=== PATIENT | female | born 1960 | race Caucasian/White ===

== ENCOUNTER → 2016-10-01 | Outpatient (CLI) | payer OTHER ==
[~2016-10-01] MED LIST: CALC500C70 PO; MULT-506 PO; SIMV20TA2 PO
[2016-10-01 12:50] LABS: GLUCOSE,FASTING 90 mg/dl (70-99)
[2016-10-01 12:57] LABS: CHOLESTEROL 194 mg/dl (0-200); CHOLESTEROL/HDL RATIO 2.9; HDL CHOLESTEROL 67 mg/dl; TRIGLYCERIDES 83 mg/dl (0-150); VERY LOW DENSITY LIPOPROT CALC 17 mg/dl
== END | disposition home or self-care (01) ==
LOC: C.LABSPEC 12:29
PROVIDERS: ATTEND Internal Medicine
DX: I10 Essential (primary) hypertension (principal); E78.5 Hyperlipidemia, unspecified; R73.9 Hyperglycemia, unspecified

== ENCOUNTER → 2017-03-05 | Outpatient (CLI) | payer OTHER ==
--- NOTE | 2017-03-06 13:48 | MAMMOGRAPHY REPORT ---
BILATERAL DIGITAL SCREENING MAMMOGRAM TOMOSYNTHESIS WITH CAD: 03/05/2017 CLINICAL HISTORY: Routine screening. Patient has no complaints. TECHNIQUE: Breast tomosynthesis in addition to standard 2D mammography was performed. Current study was also evaluated with a Computer Aided Detection (CAD) system. COMPARISON: Comparison is made to exams dated: 01/17/2016 mammogram, 12/01/2014 mammogram, 11/30/2013 [place] mogram, 11/27/2012 mammogram, 11/26/2011 mammogram, and 11/26/2010 mammogram - [facility] ter. BREAST COMPOSITION: The tissue of both breasts is heterogeneously dense, which may obscure small mas ses. FINDINGS: There is a stable focal asymmetry with associated calcification in the 12:00 right breast, and a circumscribed mass in the 3:00 anterior left breast that has decreased in size comparing to neto or mammograms, confirming benignity. There is a stable metallic biopsy marker in the left upper oute r quadrant. No new suspicious mass, architectural distortion or cluster of microcalcifications is se en. IMPRESSION: ACR BI-RADS CATEGORY 1: NEGATIVE There is no mammographic evidence of malignancy. A 1 year screening mammogram is recommended. The pa tient will receive written notification of the results. Approximately 10% of breast cancers are not detected with mammography. A negative mammographic report should not delay biopsy if a clinically suggestive mass is present. Nisha Lozada M.D. ay/:03/05/2017 15:39:39 [employer]: Qian CAMPOS(R)(M), [facility] letter sent: Normal 1/2 BI-RADS Code: ACR BI-RADS Category 1: Negative
== END | disposition home or self-care (01) ==
LOC: C.MAMM 13:47
PROVIDERS: ATTEND Obstetrics & Gynecology
DX: Z12.31 Encounter for screening mammogram for malignant neoplasm of breast (principal)

== ENCOUNTER → 2017-03-31 | Outpatient (CLI) | payer OTHER ==
[2017-03-31 13:51] LABS: BLOOD UREA NITROGEN 12 mg/dl (7-18); BUN/CREATININE RATIO 18.4 (10-20); CALCIUM 9.5 mg/dl (8.5-10.1); CARBON DIOXIDE 28 mmol/L (21-32); CHLORIDE 106 mmol/L (98-107); CHOLESTEROL 188 mg/dl (0-200); CREATININE 0.64 mg/dl (0.60-1.20); GLUCOSE 96 mg/dl (70-99); POTASSIUM 4.2 mmol/L (3.5-5.1); SODIUM 140 mmol/L (136-145)
[2017-03-31 13:57] LABS: CHOLESTEROL/HDL RATIO 3.1; HDL CHOLESTEROL 61 mg/dl; TRIGLYCERIDES 68 mg/dl (0-150); VERY LOW DENSITY LIPOPROT CALC 14 mg/dl
[2017-03-31 13:59] LABS: ESTIMATED AVERAGE GLUCOSE 114 mg/dl; HA1C FLAG Normal (Normal)
== END | disposition home or self-care (01) ==
LOC: C.LABSPEC 12:24
PROVIDERS: ATTEND Internal Medicine
DX: Z00.00 Encounter for general adult medical examination without abnormal findings (principal); E78.5 Hyperlipidemia, unspecified; R73.9 Hyperglycemia, unspecified

== ENCOUNTER → 2018-03-25 | Outpatient (CLI) | payer OTHER ==
[2018-03-25 14:34] LABS: CHOLESTEROL 199 mg/dl (0-200); GLUCOSE,FASTING 98 mg/dl (70-99); LDL CHOLESTEROL (DIRECT) 123 mg/dl
== END | disposition home or self-care (01) ==
LOC: C.LABSPEC 13:38
PROVIDERS: ATTEND Internal Medicine
DX: Z00.00 Encounter for general adult medical examination without abnormal findings (principal); E78.5 Hyperlipidemia, unspecified; R73.9 Hyperglycemia, unspecified